=== PATIENT | male | born 2000 | race African-American/Black ===

== ENCOUNTER 2023-05-12 11:05 | Inpatient (IN) | payer MEDICAID, OTHER ==
[~2023-05-12] VITALS: Ht 172.7 cm; Wt 179.4 kg
[2023-05-12 12:07] LABS: COVID AG,FIA SOURCE NASAL SWAB
[2023-05-12 12:28] LABS: SARS-COV2 (COVID) ANTIGEN,FIA Negative (Negative)
[2023-05-12 12:34] LABS: PH,URINE DRUG SCREEN 5.5 (5.0-8.0)
[2023-05-12 12:41] LABS: ALCOHOL, URINE DRUG SCREEN NEGATIVE (NEGATIVE); AMPHET/METH SCREEN,URINE NEGATIVE (NEGATIVE); BARBITURATE SCREEN, URINE NEGATIVE (NEGATIVE); BENZODIAZEPINES SCREEN,URINE NEGATIVE (NEGATIVE); CANNABINOID SCREEN,URINE POSITIVE (NEGATIVE); COCAINE SCREEN,URINE NEGATIVE (NEGATIVE); METHADONE SCREEN, URINE NEGATIVE (NEGATIVE); OPIATE SCREEN,URINE NEGATIVE (NEGATIVE); PHENCYCLIDINE SCREEN,URINE NEGATIVE (NEGATIVE)
[2023-05-12] MEDS ORDERED: LORazepam 2 MG TABLET PO ONE (13:45)
[2023-05-12 19:05] VITALS: BP 146/96; PULSE 105; RESP 18; TEMP 97.8; O2SAT 96
[2023-05-12] MEDS: ZOLPIDEM TARTRATE 10 MG TABLET PO PRN (20:44)
[2023-05-12] MEDS: LORazepam 2 MG TABLET PO PRN (20:45)
[2023-05-12] MEDS: HALOPERIDOL 5 MG TABLET PO PRN (20:53)
[2023-05-12 21:21] VITALS: BP 135/82; PULSE 98; RESP 16; TEMP 98; O2SAT 98
[2023-05-12] MEDS ORDERED: MAGNESIUM HYDROXIDE SUSPENSION 30 ML UDCUP PO PRN (21:30)
[2023-05-12] MEDS ORDERED: PETROLATUM,WHITE 28 GM JELLY TP PRN (21:30)
[2023-05-12] MEDS ORDERED: LOPERAMIDE HCL 2 MG CAPSULE PO PRN (21:30)
[2023-05-12] MEDS ORDERED: BACITRACIN 28 GM OINTMENT TP PRN (21:30)
[2023-05-12] MEDS ORDERED: OMEPRAZOLE 20 MG CAPSULE PO PRN (21:30)
[2023-05-12] MEDS ORDERED: DOCUSATE SODIUM 100 MG CAPSULE PO PRN (21:30)
[2023-05-12] MEDS ORDERED: ACETAMINOPHEN 325 MG TABLET PO PRN (21:30)
[2023-05-12] MEDS ORDERED: BENZOCAINE/MENTHOL LOZENGE PO PRN (21:30)
[2023-05-12] MEDS ORDERED: CloNIDine HCL 0.1 MG TABLET PO PRN (21:30)
[2023-05-12] MEDS ORDERED: IBUPROFEN 600 MG TABLET PO PRN (21:30)
[2023-05-12] MEDS ORDERED: ONDANSETRON HCL 4 MG TABLET PO PRN (21:30)
[2023-05-12] MEDS ORDERED: ALBUTEROL SULFATE HFA 90 MCG/PUFF 8 GM INHALER IH PRN (21:30)
[2023-05-12] MEDS ORDERED: MAG HYDROX/ALUMINUM HYD/SIMETH ES 30 ML SUSPENSION UDCUP PO PRN (21:30)
[2023-05-12] MEDS ORDERED: INFLUENZA VIRUS VACCINE QVS 2023-24 (6MO+)/PF 60 MCG/0.5 ML SYRINGE IM. ONE (23:45)
[2023-05-13] MEDS: HALOPERIDOL 5 MG TABLET PO PRN (16:59)
[2023-05-13] MEDS: LORazepam 2 MG TABLET PO PRN ×2 (16:59→21:08)
[2023-05-13] MEDS: ZOLPIDEM TARTRATE 10 MG TABLET PO PRN (21:08)
[2023-05-14 00:45] VITALS: RESP 18
[2023-05-14] MEDS: LORazepam 2 MG TABLET PO PRN ×2 (06:57→11:59)
[2023-05-14] MEDS: HALOPERIDOL 5 MG TABLET PO PRN ×2 (06:57→11:59)
[2023-05-14 09:25] VITALS: BP_SYST 107; BP_SYST 137; BP_DIAS 61; BP_DIAS 73; PULSE 105; PULSE 86; RESP 18; TEMP 97.3; TEMP 97.7; O2SAT 95
== END 2023-05-14 14:20 | disposition home or self-care (01) | DRG 753 ==
LOC: EMS 11:05 → B3A 13:20
PROVIDERS: ADMIT Psychiatry & Neurology Psychiatry; ATTEND Psychiatry & Neurology Psychiatry
DX: F31.9 Bipolar disorder, unspecified (principal); Z68.44 Body mass index [BMI] 60.0-69.9, adult; E66.01 Morbid (severe) obesity due to excess calories; F41.9 Anxiety disorder, unspecified; G47.00 Insomnia, unspecified; K59.00 Constipation, unspecified; F12.90 Cannabis use, unspecified, uncomplicated; F43.10 Post-traumatic stress disorder, unspecified; Z20.822 Contact with and (suspected) exposure to COVID-19
CPT/HCPCS: 80307; 99285